=== PATIENT | male | born 1945 | race Caucasian/White ===

== ENCOUNTER 2016-12-08 18:16 | Inpatient (IN) | payer MEDICARE, BC ==
--- NOTE | ~2016-12-08 | DS ---
Unit #: [id number] #: [id number] Patient: KARISSA NEVES [id number] [address] [place], [place] [address] [id number] MR#: [id number] NAME: KARISSA NEVES ROOM: 318 Age: 71 Sex: M Admission Date: 12/08/2016 : 1945 Discharge Date: 12/10/2016 Attending Physician: Viry Mclaughlin M.D. Primary Care Physician: Nirali Morales M.D. DISCHARGE SUMMARY PRINCIPAL DIAGNOSES 1. New onset seizure with abnormal electroencephalogram. 2. Hyperkalemia, medication-induced, now resolved. 3. Chronic alcohol abuse without evidence of withdrawal. 4. Hypertension, uncontrolled. 5. Peripheral arterial disease. 6. History of stroke. 7. Tobaccoism. 8. Marijuana use. CONSULTANTS Dr. Walker - Neurology. PROCEDURES 1. Two dimensional echocardiogram on December 09, 2016, with ejection fraction of 50% to 55%. No valvular abnormalities noted. Normal right ventricular systolic pressure. 2. EEG revealing left sided discharges. 3. Chest x-ray on December 08, 2016, with calcified right hilar lymph node. No other acute findings. 4. CT of the head without contrast on December 08, 2016, with hypodensities in the right frontoparietal cortex and white matter extending to the centrum semiovale and burgess radiata. Smaller lesions in right basal ganglia and external capsule. These are all old. 5. MRI of the brain with and without contrast on December 09, 2016, with atrophy, chronic ischemic changes and periventricular deep white matter noted. Chronic encephalomalacia on the right frontoparietal region. No acute findings. Symmetric temporal lobes. CLINICAL HISTORY/HOSPITAL COURSE Mr. Neves is a 71-year-old male who presents to the emergency department after a loss of consciousness and shaking at home. Please refer to H and P for further details. The patient underwent CT scan of the head without contrast in the emergency department which was unremarkable. He was found to be hyperkalemic with a potassium of 5.2. The patient was subsequently admitted. Dr. Walker was consulted given concern for new onset seizure. EEG was done and did reveal an abnormality on the left side consistent with seizure. Upon admission, patient had been placed on Keppra and was maintained on Keppra. He had no further seizure activity. Due to patient's seizure activity, MRI of the brain was done but did not reveal any abnormalities. The patient does have a history of alcohol Unit #: [id number] #: [id number] Patient: KARISSA NEVES abuse but didn't demonstrate any other signs of withdrawal and, in fact, did have a mild amount of alcohol in his system when he was admitted. It is not felt that these seizures are alcohol related though I have discussed with the patient and his that alcohol can be a risk factor for seizure and patient needs to cut down slowly. He expressed his understanding. In regards to patient's hyperkalemia, this was treated and he has had no further hyperkalemia. It is unclear to me whether this is secondary to his lisinopril or his Maxzide. Which medications he is taking at home is also unclear. I am receiving a different list from his pharmacy versus reports per the family. I am going to continue him on his lisinopril in addition to his atenolol and potassium can be rechecked as an outpatient. We are going to discontinue triamterene. The patient will be discharged home today. DISCHARGE CONDITION Stable. DISCHARGE STATUS Discharge to home. DISCHARGE MEDICATIONS 1. Keppra 500 mg p.o. b.i.d. with one refill given. 2. Atenolol 100 mg daily. 3. Zestril 40 mg daily. 4. Aspirin 81 mg daily. DISCHARGE INSTRUCTIONS The patient was instructed to not drive for three months. He will follow other seizure precautions. He can increase his activity as tolerated. Should follow a heart healthy diet and, again, should cut down his drinks to no more than two per day. FOLLOWUP The patient will follow up with Dr. Brayden Ruiz of outpatient neurology in four weeks. I have provided him with a list of PCPs in the area if he so chooses to change. He needs a BMP in one week per his primary care provider, Nirali Morales. Dictated by... Viry Mclaughlin M.D. LUCIO/huber TD: 12/11/2016 07:39 JOB #: [id number] Unit #: [id number] #: [id number] Patient: KARISSA NEVES DISCHARGE SUMMARY Page 1 of 1 X Viry Mclaughlin MD X DISCHARGE SUMMARY
--- NOTE | ~2016-12-08 | HP ---
Unit #: [id number] #: [id number] Patient: KARISSA SIMON [id number] [address] [place], [place] [address] [id number] MR#: [id number] NAME: KARISSA SIMON ROOM: 86140 Age: 71 Sex: M Admission Date: 12/08/2016 : 1945 Attending Physician: Trinh Rodríguez M.D. Primary Care Physician: Nirali Morales M.D. HISTORY AND PHYSICAL CHIEF COMPLAINT Loss of consciousness. HISTORY This pleasant 71-year-old male with hypertension and peripheral vascular disease, is admitted following an episode of loss of consciousness. The patient was sitting on a stool at his home bar with his family. He became diaphoretic, nauseous, and lightheaded. He then was witnessed to have generalized tonic clonic shaking for about 90 seconds. The family was able to catch him and they laid him on the floor. He was unconscious for another minute or two. However, when he awoke he was not confused, did not bite his tongue or urinate on himself. He has never had similar symptoms in the past. He denies feeling ill before the above mentioned episode. Also denies chest pain, palpitations with the above or exertional chest pain. He was brought to this emergency department where labs demonstrate mild hyperkalemia, potassium 5.2. Head CT showed old strokes on the right. PAST MEDICAL HISTORY 1. Hypertension. 2. Peripheral vascular disease, status post right carotid endarterectomy. 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 3. 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 4. What sounds to be peripheral vascular disease of the lower extremities as patient's psychiatrist wanted patient to have arterial Dopplers in the future. 5. Pilonidal cyst excised. 6. Exploratory lap. 7. Right carotid endarterectomy. ALLERGIES None. HOME MEDICATIONS Atenolol 100 mg daily; lisinopril 20 mg daily; triamterene hydrochlorothiazide 75/50 daily. FAMILY HISTORY Negative for CAD, positive for hypertension. SOCIAL HISTORY The patient lives with is . He smokes between 1/2 to 1 pack per day of tobacco. He drinks on a daily basis, often 3 1/2 to 4 beers and Unit #: [id number] #: [id number] Patient: KARISSA SIMON perhaps a shot of liquor. Denies withdrawal symptoms however. REVIEW OF SYSTEMS Notable for loss of consciousness as described above, hypertension, diverticular disease resulting in an abscess requiring exploratory lap. CVA affecting the right eye with peripheral vascular disease, status post right carotid endarterectomy, tobacco abuse, daily alcohol use, above mentioned surgeries. All other systems were reviewed and are negative. PHYSICAL EXAMINATION GENERAL: Pleasant, young appearing 71-year-old male currently in no acute distress. VITAL SIGNS: Temperature 97.4, pulse 71, respirations 16, blood pressure 158/84, O2 saturation is 95% on room. HEENT: Eyes - PERRLA, extraocular movements intact, pharynx is benign. NECK: Supple without adenopathy or thyromegaly. No carotid bruits. CHEST: Clear. CARDIAC: Normal S1 and S2 without S3, S4 or murmur. ABDOMEN: Bowel sounds are present. No hepatosplenomegaly, tenderness or masses. EXTREMITIES: Pedal pulses on the left is diminished, left foot is cooler than the right. NEUROLOGIC: Patient is awake, alert and oriented. Cranial nerves are intact. He has +5/5 strength throughout. Normal rapid alternating movements. Normal finger to nose, negative pronator drift. He is able to sit up without assistance. DIAGNOSTIC STUDIES ADMISSION LABS: Hematocrit is 46.5, white blood count is 12.1, MCV is 99, normal platelet count. Cardiac markers are negative. INR is 1. SMA 12 - glucose 113, potassium 5.2, alcohol level 22. IMAGING STUDIES: Head CT difficult for me to listen to the voice clip. Await final reading, but I do hear the patient has evidence of old CVAs on the right. Chest x-ray - no acute disease. CARDIOLOGY STUDIES: EKG shows a normal sinus rhythm, rate 66 with T wave inversion lead 3, otherwise normal. ASSESSMENT 1. Possible new seizure versus syncope. 2. Old CVAs on the right on CT scan. 3. Essentially hypertension. 4. Mild hyperkalemia secondary to medicines. 5. Daily alcohol use. 6. Tobacco use. 7. Peripheral vascular disease, status post right carotid endarterectomy and likely affecting the left lower extremity as well. PLANS 1. Will obtain EEG, MRI, Holter monitor, echocardiogram, and ask neurology to see in consultation. 2. Change Maxzide to HCTZ. 3. Benzos and vitamins. 4. Aspirin. 5. Check orthostatics. Unit #: [id number] #: [id number] Patient: KARISSA SIMON 6. Repeat cardiac enzymes and labs. 7. Urine tox screen. 8. Further workup pending on above. Dictated by Trinh Rodríguez M.D. AML/ts TD: 12/09/2016 05:02 JOB #: [id number] HISTORY AND PHYSICAL Page 1 of 1 X Trinh Rodríguez MD X HISTORY AND PHYSICAL
--- NOTE | ~2016-12-08 | CO ---
Unit #: [id number] #: [id number] Patient: KARISSA SIMON [id number] [facility] [address] [place], [place] [address] [id number] I MR#: [id number] NAME: KARISSA SIMON ROOM: 318 Age: 71 Sex: M Admission Date: 12/08/2016 : 1945 Attending Physician: Viry Mclaughlin M.D. Primary Care Physician: Nirali Morales M.D. Consultation Date: 12/09/2016 CONSULTATION REPORT PRIMARY CARE PHYSICIAN Dr. Nirali Morales. REASON FOR CONSULTATION Questionable seizure. PATIENT IDENTIFICATION A 71-year-old right-handed male, evaluated in room 318 at [facility]. SOURCE OF INFORMATION Obtained from the patient, the patient's at the bedside as well as medical record. HISTORY OF PRESENT ILLNESS This is a 71-year-old right-handed male with past medical history of hypertension, peripheral vascular disease, and stroke, who presented to [facility] with loss of consciousness. The patient was in his usual state of health when he was sitting on a bar stool at home with his family. According to his , he was drinking alcohol when he suddenly had a syncopal event. The patient states that he felt lightheaded, diaphoretic, and weak and he states that he clearly remembers telling us adult children "I think I'm going to pass out." He then proceeded to become rigid and have generalized tonic-clonic shaking and his eyes rolled back into his head and this lasted for about 90 seconds. His children eased him to the floor and they called EMS. His states that they were told not to put a pillow under him, but that to hold his jaw forward with his head tilted back. She states about 90 seconds later the event ended and that he came to with awake, alert, and oriented. Had no postictal state. No incontinence. No tongue bite. He states that he remembers knowing he was going to pass out and he states that he remembers waking up that he did lose consciousness. His family reports classic tonic-clonic shaking with classic generalized seizure activity, but he did not exhibit a postictal state, incontinence, or tongue bite. He was brought in for further evaluation given the presentation. He was admitted for syncope, possible seizure. His labs did demonstrate hyperkalemia with potassium of 5.2. His head CT showed some old strokes on the right, but no new or acute findings. He has had no further events here and states that he feels good and is ready to be discharged when his workup is finished. His EKG showed normal sinus rhythm. His troponin was less than 0.05. His blood alcohol level was 22. On arrival, he was drinking prior to this event. His white blood cell count was 12.1. His repeat white blood cell count today is normalized at 9.6. Urine tox screen is positive for marijuana. Urinalysis is Unit #: [id number] #: [id number] Patient: ALFREDKARISSA unremarkable other than showing 1+ blood. No report of any exacerbating or alleviating factors or any other associated symptoms. He denies any prior similar events. His states that he does have a history of falls per reports that he falls whenever he is "drunk." His states great concern about his alcohol history and reports that she is concerned that he is drinking in excess. PAST MEDICAL HISTORY 1. Hypertension. 2. Peripheral vascular disease, status post right carotid endarterectomy. The patient states that he had a stroke to his eye. His CT shows areas of encephalomalacia in the right frontoparietal cortex. On exam, he has more of right eye vision loss rather than a field cut. I do not know any details as to his history, but he does have a documented history of right carotid endarterectomy and encephalomalacia in the right MCA territory on a CT scan. 3. Perforated diverticulum, requiring exploratory laparotomy for abscess. 4. Peripheral vascular disease in the lower extremities. 5. Pilonidal cyst excised. 6. Exploratory laparotomy. ALLERGIES No known drug allergies. HOME MEDICATIONS Include atenolol, lisinopril, triamterene, hydrochlorothiazide. FAMILY HISTORY Negative for seizures, epilepsy, or neurologic disease. SOCIAL HISTORY The patient lives with his . He smokes a half pack to a pack per day of tobacco. He drinks on a daily basis. He tells me that he drinks 3 to 5 beers a day and 1 to 1-1/2 shots of vodka and likes to drink wine as well on occasion. He denies any withdrawal symptoms or alcohol abuse and states that he drinks throughout the day and does not drink to get drunk. He states "I just like to enjoys drinking," however, his was arguing with him in the room stating that he gets drunk and that he drinks all hours of the day. She states he wakes up in the middle of the night to drink. She states he is not eating enough food and drink instead. She states that he has had 15 to 20 falls in the 10 years they have been and reports that he falls whenever he is drinking. He denies illicit drug use. His urine tox screen is positive for marijuana. REVIEW OF SYSTEMS 12-point review of systems was done. Pertinent positives are as discussed above, otherwise negative. PHYSICAL EXAMINATION VITAL SIGNS: Temperature 97.9. He has been afebrile. Pulse 59, respirations 15, blood pressure 143/73, oxygen saturation 97% on room air. Height 6 feet 0 inches, weight 183 pounds. BMI 24. NEUROLOGIC: The patient is awake. He is alert and oriented currently to person, place, and time. He is oriented to events. He is being argumentative with his . He follows commands. He is otherwise appropriate. He has clear speech. No apraxia. No aphasia. Cranial nerve exam, he demonstrates no hemianopia, but rather right eye visual loss. Extraocular movements are intact. Sensation of face and scalp is Unit #: [id number] #: [id number] Patient: HORINE,KARISSA intact. Strength of the muscles of facial expression is intact. Hearing is intact to finger rub and conversation. His tongue is midline. His uvula is midline. His palatal elevation is normal. His head turning and shoulder shrugs are unremarkable. His neck is supple. Motor exam, he demonstrates normal bulk, normal tone. Strength is 5/5 in all extremities. He does not exhibit any tremors or myoclonus or increased tone. Gait is unremarkable. Romberg deferred. Reflexes 1/4. Toes are equivocal. His coordination does not reveal any cerebellar signs. No past pointing. Normal [id number]. DIAGNOSTIC STUDIES LABORATORY RESULTS: Please see above. IMAGING STUDIES: Please see above. Again, CT of the head without contrast shows hypodensities in the brain with a relatively larger one in the right frontoparietal cortex and white matter extending to the underlying centrum semiovale and burgess radiata. Smaller lesions are also noted in the right basal ganglia and adjacent external capsule likely old insults. No superimposed acute intracranial abnormality. IMPRESSION 1. Syncope, concern for possibility of seizure, though somewhat atypical given lack of postictal state; however, EEG is abnormal showing left-sided discharges. 2. Alcohol abuse. 3. History of cerebrovascular accident. 4. History of right carotid endarterectomy. 5. Peripheral vascular disease. 6. Tobacco abuse. 7. Falls. Reported it is secondary to alcohol abuse per the . The patient and denied any falls or difficulties with gait unrelated to alcohol abuse. 8. Hyperkalemia. PLAN He had a single non-prolonged event, again atypical given lack of postictal state, but concerning for generalized activity based upon the description and history and duration. His EEG was done this morning. Dr. Walker's read that and it does show left-sided discharges. The patient does require treatment. We will start the patient on Keppra 500 mg p.o. b.i.d. and continue seizure precautions. We will await MRI of the brain without and with contrast per seizure protocol. Further recommendations pending workup and further clinical course. He has had no further events nothing to suggest status or [employer] infection or new stroke, possible discharge tomorrow pending his MRI of the brain results. Case discussed with Dr. Walker and he saw the patient today as well. We will follow along with you. We thank you very much for allowing us to assist in the care of this patient. Dictated by... Leo PorterPBridgetteRBridgetteN. for Moy Martinez/jamil TD: 12/10/2016 03:33 Unit #: [id number] #: [id number] Patient: KARISSA SIMON JOB #: [id number] CONSULTATION REPORT Page 1 of 1 X Polly Gonzalez DENTAL SERVICES DIRECTOR X CONSULTATION REPORT
--- NOTE | ~2016-12-08 | CR72 ---
[facility] A Service of [facility] & [facility] RADIOLOGY TEXT RESULTS PATIENT: KARISSA SIMON LOCATION: A 318-01 : [birth year] UNIT #: [id number] AGE: [address]: Viry Mclaughlin MD SEX: M ORDER DR: [id number] [facility] [address] [place], [place] [address] [id number] I MR#: [id number] Acc #: [id number] NAME: KARISSA SIMON : 1945 SEX: M STUDY DATE/TIME: 12/08/2016 16:32 [facility] 48240 STUDY DESCRIPTION: CR Chest Single View Portable Attending Physician: Trinh Rodríguez M.D. Ordering Physician: Selina Mustafa M.D. Primary Care Physician: Nirali Morales M.D. MEDICAL IMAGING REPORT This report is preliminary unless electronic signature is present EXAM Single view of the chest, 12/08/2016 COMPARISON None. HISTORY Shortness of air, near syncope and weakness on 12/08/2016. FINDINGS Single view of the chest was obtained. Lungs are well-aerated. Heart, mediastinum and bones do not demonstrate any significant acute abnormality. IMPRESSION 1. No acute cardiopulmonary disease. 2. Calcified right hilar lymph node is noted suggestive of old granulomatous disease, not mentioned above. Dictated by... Deniz Gramajo M.D. THIS IS AN ELECTRONICALLY VERIFIED REPORT Deniz Gramajo M.D. at 12/09/2016 1:48 PM CPR/ljd TD: 12/09/2016 04:44 JOB #: [id number] MEDICAL IMAGING REPORT Page 1 of 1 COPY
--- NOTE | ~2016-12-08 | MR17 ---
[facility] A Service of [facility] RADIOLOGY TEXT RESULTS PATIENT: KARISSA SIMON LOCATION: C3A 318- : [birth year] UNIT #: [id number] AGE: [address]: Viry Mclaughlin MD SEX: M ORDER DR: [id number] [facility] [address] [facility] [place], [place] [address] [id number] I MR#: [id number] Acc #: [id number] NAME: KARISSA SIMON : 1945 SEX: M STUDY DATE/TIME: 12/09/2016 23:12 UNIT: C3A PCU ROOM: 318 STUDY DESCRIPTION: MR Brain WWo Contrast Attending Physician: Viry Mclaughlin M.D. Ordering Physician: Selina Mustafa M.D. Primary Care Physician: Nirali Morales M.D. MRI CENTER REPORT This report is preliminary unless electronic signature is present. EXAM Brain MRI with and without contrast HISTORY Loss of consciousness on 12/08/2016. Question of syncope versus seizure. TECHNIQUE Multiplanar imaging of the brain was performed with and without contrast. 17 mL of MultiHance was used. FINDINGS On diffusion weighted imaging there is no evidence of abnormal restricted diffusion to suggest a recent infarct. The routine brain images show generalized atrophy with chronic ischemic changes around the ventricles bilaterally to a moderate degree. Focal encephalomalacia is seen in the right frontoparietal region along the sensory motor strip. This is consistent with a chronic infarct. No acute or chronic hemorrhages are seen on gradient echo imaging. Postcontrast images show no abnormal enhancement. Extraaxial structures are unremarkable. IMPRESSION 1. Atrophy with chronic ischemic changes in the periventricular deep white matter and chronic encephalomalacia along the sensory motor strip on the right. 2. No acute findings. No evidence of recent infarct. 3. Symmetric temporal lobes. No focus for seizure activity is identified in the temporal lobes. Dictated by... Getachew Fierro M.D. [facility] A Service of [facility] RADIOLOGY TEXT RESULTS PATIENT: HORINE,KARISSA LOCATION: C3A 318-01 : [birth year] UNIT #: [id number] AGE: [address]: Viry Mclaughlin MD SEX: M ORDER DR: THIS IS AN ELECTRONICALLY VERIFIED REPORT Getachew Fierro M.D. at 12/10/2016 3:47 PM FAN/sallie TD: 12/10/2016 07:19 JOB #: [id number] MRI CENTER REPORT Page 1 of 1 COPY
--- NOTE | ~2016-12-08 | EE ---
Unit #: [id number] #: [id number] Patient: KARISSA SIMON [id number] [address] [address] [id number] I MR#: [id number] NAME: KARISSA SIMON : 1945 SEX: M STUDY DATE/TIME: 12/09/2016 UNIT: C3A PCU ROOM: [facility] STUDY DESCRIPTION: EEG Attending Physician: Viry Mclaughlin M.D. Primary Care Physician: Nirali Morales M.D. NEURODIAGNOSTICS REPORT EXAM EEG REFERRED MD Polly Gonzalez A.P.R.N. and Viry Mclaughlin M.D. REASON FOR THE STUDY Syncope, possible seizures. EEG DESCRIPTION This is an inpatient, digitally recorded multi-montage adult EEG with leads placed according to the International 10-20 System. Hyperventilation and photic stimulation was attempted. With the patient fully aroused, there is 8-9 Hz posterior dominant alpha rhythm which is symmetric and attenuates with eyes opening. The patient did become drowsy but I did not see any deeper stages of sleep. Hyperventilation was attempted but I did not see any significant changes. Photic stimulation was attempted in intermittent stepwise pattern. I did not see any discharges or other abnormalities or paroxysmal activity. Hyperventilation was also attempted with no significant change. The important feature is there is some phase reversing between C3 and P3. Occasionally, it looks like this may be vertex type activity and drowsiness but I saw some changes in the mid temporal regions and that is concerning for focal irritable foci. Occasionally, drowsiness can be seen on other side also, especially in the central parietal region but definitely concerning for focal abnormalities. IMPRESSION Likely abnormal EEG with left sided discharges. Please clinically correlate with patient history and imaging study. Dictated by... Moy Martinez Unit #: [id number] #: [id number] Patient: KARISSA SIMON TD: 12/10/2016 06:08 JOB #: [id number] NEURODIAGNOSTICS REPORT Page 1 of 1 X Reji Walker MD NEURODIAGNOSTICS REPORT
--- NOTE | ~2016-12-08 | EKG ---
PATIENT: KARISSA SIMON UNIT #: [id number] Ventricular Rate: 60 BPM Atrial Rate: 60 BPM P-R Interval: 168 ms QRS Duration: 82 ms Q-T Interval: 436 ms QTC Calculation(Bezet): 436 ms P [place]: 60 degrees Calculated R [place]: 36 degrees Calculated T [place]: 46 degrees Diagnosis Line: Normal sinus rhythm Diagnosis Line: Normal ECG Diagnosis Line: When compared with ECG of 08-DEC-2016 16:56, Diagnosis Line: No significant change was found Diagnosis Line: Confirmed by GLADYS CASTELLANOS MD ([id number]) on 12/10/2016 Diagnosis Line: 5:36:29 AM INTERPRETING MD: MEANUEL MONTES
--- NOTE | ~2016-12-08 | EKG ---
PATIENT: KARISSA SIMON UNIT #: [id number] Ventricular Rate: 66 BPM Atrial Rate: 66 BPM P-R Interval: 170 ms QRS Duration: 78 ms Q-T Interval: 406 ms QTC Calculation(Bezet): 425 ms P Benavides: 63 degrees Calculated R Benavides: 45 degrees Calculated T Benavides: 8 degrees Diagnosis Line: Normal sinus rhythm Diagnosis Line: Normal ECG Diagnosis Line: No previous ECGs available Diagnosis Line: Confirmed by GLADYS CASTELLANOS MD ([id number]) on 12/08/2016 Diagnosis Line: 10:03:20 PM INTERPRETING MD: EMANUEL MONTES
--- NOTE | ~2016-12-08 | CT71 ---
[facility] A Service [facility] RADIOLOGY TEXT RESULTS PATIENT: KARISSA SIMON LOCATION: C3A 318-01 : [birth year] UNIT #: [id number] AGE: [address]: Viry Mclaughlin MD SEX: M ORDER DR: [id number] [facility] [address] [place], [place] [address] [id number] MR#: [id number] #: [id number] NAME: KARISSA SIMON : 1945 SEX: M STUDY DATE/TIME: 12/08/2016 16:47 UNIT: [facility] ROOM: 98112 STUDY DESCRIPTION: CT Head Wo Contrast Attending Physician: Trinh Rodríguez M.D. Ordering Physician: Selina Mustafa M.D. Primary Care Physician: Nirali Morales M.D. MEDICAL IMAGING REPORT This report is preliminary unless electronic signature is present EXAM CT head without contrast, 12/08/2016 COMPARISON None. HISTORY Syncope, loss of consciousness earlier today. Daily drinker. This CT exam was performed with one or more of the following radiation dose reduction techniques: automatic exposure control, adjustment of mA and/or kV according to patient size, and iterative reconstruction. FINDINGS CT of the head was obtained without contrast in the axial plane as per the protocol. Hypodense lesion is noted in the right frontoparietal cortex and underlying subcortical white matter extending towards the right lateral ventricle. Small hypodensity is also seen in the right basal ganglia. No acute intracranial hemorrhage, hydrocephalus or midline shift. Minimal mucosal thickening is noted in the paranasal sinuses. Mastoid air cells are well aerated. IMPRESSION 1. Hypodensities are noted in the brain with a relatively larger one in the right frontoparietal cortex and white matter extending to the underlying centrum semiovale and burgess radiata. Smaller lesions are also noted as described above in the right basal ganglia and adjacent external/extreme capsule. They are likely related to old insults. 2. No superimposed acute intracranial abnormality. Dictated by... [facility] A Service [facility] RADIOLOGY TEXT RESULTS PATIENT: KARISSA SIMON LOCATION: A 318-01 : [birth year] UNIT #: [id number] AGE: [address]: Viry Mclaughlin MD SEX: M ORDER DR: Deniz Gramajo M.D. THIS IS AN ELECTRONICALLY VERIFIED REPORT Deniz Gramjao M.D. at 12/09/2016 1:48 PM CPR/ljd TD: 12/09/2016 05:18 JOB #: [id number] MEDICAL IMAGING REPORT Page 1 of 1 COPY
[2016-12-08 16:49] LABS: BASOPHIL# 0.1 X10e3 (0-0.3); BASOPHIL% 0.4 % (0-2.5); EOSINOPHIL% 0.4 % (0.0-7.0); HEMATOCRIT 46.5 % (38.0-50.0); HEMOGLOBIN 15.5 gm/dL (13.0-16.0); LYMPHOCYTE# 1.1 X10e3 (1.0-3.5); LYMPHOCYTE% 9.3 % (17.0-45.0); MEAN CORPUSCULAR HGB CONC 33.3 g/dL (30-36); MEAN PLATELET VOLUME 8.6 FL (6.5-11.5); MONOCYTE# 1.1 X10e3 (0-1.0); MONOCYTE% 8.9 % (3.0-12.0); NEUTROPHIL# 9.8 X10e3 (1.5-7.1); PLATELET COUNT 158 X10e3 (140-420); RED CELL DISTRIBUTION WIDTH 12.7 % (11.0-15.5); WHITE BLOOD COUNT 12.1 X10e3 (4.0-10.5)
[2016-12-08 16:50] LABS: DIFF IND NO
[2016-12-08 17:14] LABS: ALBUMIN SERUM 4.2 g/dL (3.5-5.0); BILIRUBIN, DIRECT 0.1 mg/dL (0.0-0.2); BILIRUBIN,INDIRECT 0.4 mg/dL (0.0-0.9); BILIRUBIN,TOTAL 0.5 mg/dL (0.2-2.0); BUN/CREATININE RATIO 14.44; CALCIUM SERUM 9.5 mg/dL (8.4-10.2); CREATININE SERUM 0.9 mg/dL (0.6-1.4); GLOM FILT RATE Estimated 86.8 mL/min (>60); POTASSIUM 5.2 mmol/L (3.5-5.1); PROTEIN TOTAL SERUM 7.6 g/dL (6.0-8.3)
[~2016-12-08 18:16] MED LIST: ATENOLOL PO; FLAGYL PO; LEVAQUIN PO; LISINOPRIL PO; LISINOPRIL20 MG PO; MAXZIDE 75-501 EACH PO; MAXZIDE 75/50 T1 TAB PO
[2016-12-08 18:55] LABS: POC - CKMB 1.9 ng/mL (0.0-7.9); POC - TROPONIN <0.05 ng/mL (<=0.05)
[2016-12-09 06:56] LABS: URINE SOURCE CLEAN CATCH
[2016-12-09 07:16] LABS: URINE APPEARANCE CLEAR; URINE BILIRUBIN NEG (NEG); URINE BLOOD 1+ (NEG); URINE COLOR YELLOW; URINE GLUCOSE NEG (NEG); URINE KETONE 1+ (NEG); URINE LEUKOCYTE ESTERASE NEG (NEG); URINE NITRATE NEG (NEG); URINE PROTEIN NEG (NEG); URINE SPECIFIC GRAVITY 1.013 (1.003-1.035)
[2016-12-09 07:17] LABS: BASOPHIL# 0.1 X10e3 (0-0.3); BASOPHIL% 0.5 % (0-2.5); DIFF IND NO; EOSINOPHIL# 0.1 X10e3 (0-0.7); EOSINOPHIL% 0.7 % (0.0-7.0); HEMATOCRIT 43.7 % (38.0-50.0); HEMOGLOBIN 14.8 gm/dL (13.0-16.0); LYMPHOCYTE# 2.1 X10e3 (1.0-3.5); LYMPHOCYTE% 21.6 % (17.0-45.0); MEAN CELL VOLUME 98.6 FL (83-96); MEAN CORPUSCULAR HEMOGLOBIN 33.5 PG (28-34); MEAN CORPUSCULAR HGB CONC 33.9 g/dL (30-36); MEAN PLATELET VOLUME 8.5 FL (6.5-11.5); MONOCYTE% 10.9 % (3.0-12.0); NEUTROPHIL# 6.4 X10e3 (1.5-7.1); NEUTROPHIL% 66.3 % (40-75); PLATELET COUNT 152 X10e3 (140-420); RED BLOOD COUNT 4.43 X10e (3.90-5.60); RED CELL DISTRIBUTION WIDTH 12.5 % (11.0-15.5); WHITE BLOOD COUNT 9.6 X10e3 (4.0-10.5)
[2016-12-09 07:19] LABS: URINE BACTERIA AUWI NEG (NEGATIVE); URINE SQUAMOUS EPITHELIAL CELL OCC /[HPF]; UWBCS1 AUWI 0-2 (0-5)
[2016-12-09 07:31] LABS: URBCS1 AUWI 0-2 /[HPF] (0-2)
[2016-12-09 07:32] LABS: AMPHETAMINE NEG (NEG); BARBITURATES NEG (NEG); BENZODIAZEPINES NEG (NEG); COCAINE NEG (NEG); MARIJUANA POS (NEG); OPIATES NEG (NEG); TRICYCLIC ANTIDEPRESSANTS NEG (NEG); U METHADONE NEG (NEG)
[2016-12-09 07:55] LABS: CREATININE SERUM 0.7 mg/dL (0.6-1.4); GLOM FILT RATE Estimated 96.3 mL/min (>60); POTASSIUM 4.8 mmol/L (3.5-5.1)
[2016-12-09 08:01] LABS: %MB 2.9 % (0.0-4.0); MB 2.3 ng/ml
[2016-12-10] MEDS ORDERED: KEPPRA500 M1 PO (10:53)
[2016-12-10] MEDS ORDERED: ASPIRIN81 M2 PO (10:54)
== END 2016-12-10 11:45 | disposition home or self-care (01) | DRG 101 ==
LOC: CED 18:16 → CEDOF 21:10 → C3A PCU 12-09 08:02
PROVIDERS: Emergency Medicine
DX: G40.89 Other seizures (principal); E87.5 Hyperkalemia; I10 Essential (primary) hypertension; F10.10 Alcohol abuse, uncomplicated; I73.9 Peripheral vascular disease, unspecified; Z86.73 Personal history of transient ischemic attack (TIA), and cerebral infarction without residual deficits; F17.210 Nicotine dependence, cigarettes, uncomplicated; F12.10 Cannabis abuse, uncomplicated; Z79.82 Long term (current) use of aspirin
CPT/HCPCS: 36415; 70450; 70553; 71010; 80048; 80076; 80307; 81003; 82550; 82553; 84484; 85025; 85610; 85730; 87086; 93005; 93226; 93306; 95816; 99285; A9577; G0480; J1650

== ENCOUNTER → 2016-12-18 | Outpatient (CLI) | payer MEDICARE, BC ==
[~2016-12-18] MED LIST changes: +ASPIRIN81 M2 PO; +KEPPRA500 M1 PO
--- NOTE | ~2016-12-18 | US136 ---
[facility] A Service of [facility] RADIOLOGY TEXT RESULTS PATIENT: KARISSA SIMON LOCATION: CNIV : 49 UNIT #: [id number] AGE: [address]: Yolanda Levy DPM SEX: M ORDER DR: [id number] [facility] [address] [place], [place] [address] [id number] O MR#: [id number] Acc #: [id number] NAME: KARISSA SIMON : 1945 SEX: M STUDY DATE/TIME: 12/18/2016 10:56 UNIT: CNIV ROOM: STUDY DESCRIPTION: U/L Ext Art Study [facility] Attending Physician: Yolanda Levy D.P.M. Referring Physician: Yolanda Levy D.P.M. Ordering Physician: Yolanda Levy D.P.M. Primary Care Physician: Omega Butterfiedl M.D. MEDICAL IMAGING REPORT This report is preliminary unless electronic signature is present EXAM Bilateral lower extremity ankle-brachial indices, 12/20/2016 CLINICAL HISTORY Bilateral claudication, left greater than right, for 2 months. FINDINGS Right brachial pressures is 179 and left is 169 mmHg. Right ankle pressure is 215 mmHg. The posterior tibial and left is 85 mmHg. The right foot and left foot digital pressures are respectively normal. IMPRESSION 1. Severe left lower extremity ischemia with left ankle-brachial index of 0.47. 2. Normal right ankle-brachial index of 1.20. STAT * RESULT Dictated by... Israel Elizondo M.D. THIS IS AN ELECTRONICALLY VERIFIED REPORT Israel Elizondo M.D. at 12/20/2016 4:50 PM Terra TD: 12/20/2016 14:12 JOB #: [id number] MEDICAL IMAGING REPORT Page 1 of 1 COPY
== END | disposition home or self-care (01) ==
LOC: CNIV 10:32
DX: I73.9 Peripheral vascular disease, unspecified (principal)
CPT/HCPCS: 93922